=== PATIENT | male | born 1995 | race Caucasian/White ===

== ENCOUNTER 2018-07-06 10:34 | Emergency (ER) | payer BC, SELFPAY ==
[2018-07-06 10:40] VITALS: BP 125/71; PULSE 56; RESP 16; TEMP 37; O2SAT 97
--- NOTE | 2018-07-06 10:56 | ED.GENADUL_ITS ---
Discharge Plan Disposition Patient Disposition: HOME Condition: Stable Discharge Details Chief Complaint: EyeProblem Clinical Impression: Acute allergic conjunctivitis of both eyes Primary Care Provider: Tiki Caballero ED Provider: Melba Lawrence Home Meds and New Rx's Prescriptions: New gentamicin 0.3 % drops 2 drp OP Q4H 5 Days RF: 0 Discharge Instructions Instructions: Conjunctivitis (ED) Additional Instructions: Apply cool compresses to the affected eyes several times daily for 20 minutes at a time. Take [id number] allergy medication such as Zyrtec, Claritin or Jena. Your symptoms can be due to an allergic conjunctivitis but could possibly turn bacterial. Signs of bacterial conjunctivitis include worsening eye irritation, yellow discharge or yellow crusting. If you develop any signs of bacterial conjunctivitis, start the gentamicin ophthalmic solution-2 drops in affected eye 6 times daily for 5 days. Follow-up with your primary care doctor in 1 week for reevaluation. Return to the emergency department with any worsening or new concerning symptoms. Discharge Data Discharge Date/Time-TO BE ENTERED AT DEPARTURE: 07/06/18 11:43 Discharge Physician: Melba Lawrence Medical Decision Making 23-year-old male who presents for left eye irritation, itching and redness for the past week. States symptoms are now starting in the right eye. Also admits to nasal congestion and rhinorrhea. Denies known injury or foreign body sensation. Denies blurry vision. Patient wears contacts. OD 20/50, OS 20/50, OU 20/50. Left eye appears injected, with tearing. No corneal abrasion noted with fluorescein staining. No foreign body noted with slit-lamp exam. Appears likely consistent with allergic conjunctivitis. Discussed with patient that this could be the start of bacterial conjunctivitis. If he develops crusting, discharge, start the ophthalmic drops. Patient instructed to follow- up with primary care doctor in 1 week and return here with any concerns. HPI General Mode of arrival: ambulatory . Date/Time Provider Initiated Documentation: 07/06/18 10:42 . Limitations to Documentation: no limitations . Information obtained by: patient . HPI Narrative: Patient is a 23-year-old male presents with left eye irritation, itching and redness for the past week, worse this morning. States he is also started to feel itching in his right eye. He also does admit to nasal congestion, runny nose. States he changes his contacts daily and took them out this morning. He denies known injury, foreign body sensation. 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 He denies any blurry vision. Past medical history: None Surgical history: Knee surgery Social history: Rare alcohol use, denies tobacco or drugs Medications: None Allergies: None Related Data Home Medications Medication Instructions Recorded Confirmed gentamicin 2 drp OP Q4H 5 Days ml 07/06/18 Previous Rx's Medication Instructions Recorded gentamicin 2 drp OP Q4H 5 Days ml 07/06/18 Allergies Allergy/AdvReac Type Severity Reaction Status Date / Time No Known Allergies Allergy Unverified 05/26/14 08:59 General Stated Complaint: EyeProblem TISHA: 4 Review of Systems Review of Systems All systems reviewed & are unremarkable except as noted in HPI and below PFSH Social History Smoking/Tobacco Use Status: Never Exam Const General: cooperative and healthy appearing Orientation: alert and awake HENMT Head: normal to inspection Ears: hearing grossly normal bilaterally, external ears normal and TM's normal bilaterally General nose exam: external nose normal Face and sinus: normal facial exam Mouth: oral mucosae normal Teeth and gingiva: dentition normal Throat: posterior oropharynx normal Eyes General: appearance normal, both eyes and all related structures Periorbital: periorbital findings normal Eyelids: eyelids normal Conjunctivae: conjunctival abnormality left conjunctival injection diffuse Pupils: PERRL EOM: EOM intact bilaterally Neck Neck: normal visual inspection Resp Effort & Inspection: normal respiratory effort and able to speak in complete sentences Cardio Rate: regular rate Skin General skin exam: no rashes or lesions noted Neuro General: alert and awake Cognition: normal cognition Speech: speech normal Gait: normal gait Motor: muscle tone normal throughout Sensory Exam: no sensory deficits noted Extrem General: normal to inspection and full ROM Psych Appearance: grossly normal Mental Status: mental status grossly normal Speech and Movement: speech and movement normal Affect: normal affect Thought Process: normal Course Vital Signs Temperature 98.6 F 07/06/18 10:40 Pulse 56 L 07/06/18 10:40 Respiratory Rate 16 07/06/18 10:40 Blood Pressure 125/71 07/06/18 10:40 Pulse Oximetry 97 07/06/18 10:40 Temperature 98.6 F 07/06/18 10:40 Temperature Source Temporal Artery Scan 07/06/18 10:40 Pulse 56 L 07/06/18 10:40 Respiratory Rate 16 07/06/18 10:40 Respiratory Effort 07/06/18 10:42 Blood Pressure 125/71 07/06/18 10:40 Blood Pressure Position Sitting 07/06/18 10:40 Pulse Oximetry 97 07/06/18 10:40 Oxygen Delivery Method Room Air 07/06/18 10:40 Oxygen Flow Rate 0 07/06/18 10:40 Pain Level 0 07/06/18 10:40
[2018-07-06] MEDS: Tetracaine 0.5% 4 ML BTL (11:50)
== END 2018-07-06 11:43 | disposition home or self-care (01) ==
PROVIDERS: Emergency Provider Physician Assistant; PCP Pediatrics
DX: H10.13 Acute atopic conjunctivitis, bilateral (principal)
CPT/HCPCS: 99283

== ENCOUNTER 2020-02-02 09:28 | Outpatient (CLI) | payer BC, SELFPAY ==
[2020-02-03 21:03] LABS: COVID-19 RT-PCR UVMMC Result Negative (Negative)
== END 2020-02-02 09:48 ==
PROVIDERS: PCP Pediatrics; Visit Provider Family Medicine
DX: R50.9 Fever, unspecified (principal); J02.9 Acute pharyngitis, unspecified
CPT/HCPCS: U0003

== ENCOUNTER 2021-02-28 11:54 | Emergency (ER) | payer BC, SELFPAY ==
[2021-02-28] VITALS (30 sets, daily range): BP systolic 111–139; BP diastolic 61–95; PULSE 58–83; RESP 10–22; TEMP 36.7–37; O2SAT 97–100
--- NOTE | 2021-02-28 11:45 | RT.EKG_ITS ---
APPROVED REPORT Exam: Resting ECG Reason for Exam: chest pain Patient Location: E HR:65 bpm ECG Measurements Heart Rate 65 AXIS CO 155 P 30 QRSd 102 QRS 31 QT 367 T 13 QTc 383 Conclusion Sinus rhythm...normal P axis, V-rate 60- 99
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
[2021-02-28 12:51] LABS: Abs Immature Grans 0.03 10^3/uL (0.0-0.06); Absolute Basophil Count 0.02 10^3/uL (0.0-0.2); Absolute Eosinophil Count 0.19 10^3/uL (0.0-0.7); Absolute Monocyte Count 0.41 10^3/uL (0.1-0.8); Absolute Neutrophil Count 5.07 10^3/uL (1.2-6.7); Basophils % 0.3; Eosinophils % 2.4; HGB 14.2 g/dL (13.5-17.5); Immature Grans % 0.4; Lymphocytes % 27.8; MCH 27.7 pg (27.0-33.0); MPV 9.6 fL (8.0-11.0); Monocytes % 5.2; Neutrophils % 63.9; Nucleated RBC 0 %; Platelet Count 305 10^3/uL (130-400); RBC 5.12 10^6/uL (4.36-5.78); RDW 12.4 % (11.8-14.1); RDW-SD 37.8 fL; WBC 7.92 10^3/uL (4.4-10.8)
[2021-02-28 13:13] LABS: ALT 48 U/L (16-63); AST 19 U/L (15-37); Albumin 4.2 g/dL (3.4-5.0); Alkaline Phosphatase 95 U/L (46-116); Anion Gap 13.1 mmol/L (3-11); BUN 15 mg/dL (7-18); Bilirubin, Total 0.6 mg/dL (0.2-1.0); CO2 24.9 mmol/L (21.0-32.0); CREATININE 1.2 mg/dL (0.70-1.30); Calcium 9.2 mg/dL (8.5-10.1); Chloride 101 mmol/L (98-107); Glucose 104 mg/dL (74-106); Potassium 3.2 mmol/L (3.5-5.1); Sodium 139 mmol/L (136-145); Total Protein 8.1 g/dL (6.4-8.2)
[2021-02-28 13:14] LABS: Troponin I < 0.05 ng/mL (<0.06)
--- NOTE | 2021-02-28 15:01 | DI.CT_ITS ---
Exam(s) CT CAROTID NECK CTA EXAM: CT CAROTID NECK CTA CLINICAL HISTORY: chest pain, remote right ICA traumatic dissection. TECHNIQUE: Imaging Protocol: Axial CT angiography was performed with multi-slice acquisition and mu lti-planar and/or 3D reconstructions. CONTRAST MATERIAL: Intravenous: Omnipaque 350 Contrast volume:85 mL COMPARISON: No exams were available for comparison FINDINGS: CTA Neck W: Common Carotid: Right: No aneurysm, occlusion or significant stenosis. Left: No aneurysm, occlusion or significant stenosis. External Carotid: Right: No aneurysm, occlusion or significant stenosis. Left: No aneurysm, occlusion or significant stenosis. Internal Carotid: Right: No aneurysm, occlusion or significant stenosis. Left: No aneurysm, occlusion or significant stenosis. Vertebral Artery: Right: No aneurysm, occlusion or significant stenosis. Left: No aneurysm, occlusion or significant stenosis. Lung Apices: Normal. Bones: Normal. There are mucous retention cysts or polyps in the maxillary sinuses bilaterally. Soft Tissues: Normal. Thyroid: Unremarkable. IMPRESSION: 1. Normal CTA examination of the neck. 2. Results of this exam have been verbally communicated with provider. RADIATION DOSE DELIVERED: 388.32mGy.cm Total DLP 388.32mGy.cm Total DLP DATA REPOSITORY: All CT scans at this facility are submitted to the National Radiology Data Registry (NRDR) Dose Index Registry (DIR) with the [employer] (A[employer]). RADIATION OPTIMIZATION: All CT scans at this facility use at least one of these dose optimization te chniques: automated exposure control; mA and/or kV adjustment per patient size (includes targeted exa ms where dose is matched to clinical indication); or iterative reconstruction.
--- NOTE | 2021-02-28 15:19 | DI.CT_ITS ---
Exam(s) CT THORAX ABDOMEN CTA EXAM: CT THORAX ABDOMEN CTA CLINICAL HISTORY: rt chest pain, prior remote sternal fracture. TECHNIQUE: Imaging Protocol: Axial CT angiography was performed with multi-slice acquisition and m ulti-planar and/or 3D reconstructions. CONTRAST MATERIAL: Intravenous: Omnipaque 350 Contrast volume:100 mL Oral: No COMPARISON: CT CT CAROTID NECK CTA from 02/28/2021 FINDINGS: CHEST: Tracheobronchial tree: Patent where visualized. Pulmonary parenchyma: No consolidation or dominant measurable mass. No architectural distortion. Pulmonary Arteries: No evidence of filling defect to suggest pulmonary emboli. Mediastinum and [place]: No dominant adenopathy or fluid collection. There is soft tissue seen in the an terior mediastinum likely reflecting residual thymic tissue. Visualized thyroid: Unremarkable. Pleura: No effusion or pneumothorax. Heart: The heart is not dilated. No coronary artery calcifications are seen. No pericardial effusion. Aorta: Thoracic aorta non-dilated. No evidence of dissection. Soft Tissues: Bilateral gynecomastia. Bones: Old healed sternal fracture. ABDOMEN AND PELVIS: Abdomen: Celiac axis/mesenteric arteries: No evidence of occlusion or significant stenosis. Renal Arteries: No evidence of occlusion or significant stenosis. There is a single renal artery per fusing each kidney. Aorta: No evidence of occlusion or significant stenosis. No aneurysm or dissection. Iliac Arteries: No evidence of occlusion or significant stenosis. ABDOMEN: Liver: Normal density. No measurable mass. Portal, Superior Mesenteric, and Splenic Veins: Unremarkable. Gallbladder and Biliary Tract: No radiodense calculus or dilation. Pancreas: Normal density, no abnormal calcifications or inflammatory process. Spleen: Normal. Adrenals: No masses seen. Kidneys: Normal size, contour and axis. No radiodense stones or obstructive uropathy. There are tiny hypodensities in the kidneys bilaterally. They are too small for further characterization, but likel y reflect small cysts. Bowel: No obstruction or bowel wall thickening. Appendix is unremarkable. Peritoneal Cavity: No ascites, collection or mesenteric inflammatory response. No free air. Lymph Nodes: Within normal limits. Bones: Unremarkable. Soft Tissues: Unremarkable. IMPRESSION: 1. Normal CT Angiogram of the chest, abdomen and pelvis. 2. No acute abnormality. 3. Results of this exam have been verbally communicated with provider. RADIATION DOSE DELIVERED: 851.74mGy.cm Total DLP DATA REPOSITORY: All CT scans at this facility are submitted to the National Radiology Data Registry (NRDR) Dose Index Registry (DIR) with the [employer] (ACR). RADIATION OPTIMIZATION: All CT scans at this facility use at least one of these dose optimization te chniques: automated exposure control; mA and/or kV adjustment per patient size (includes targeted exa ms where dose is matched to clinical indication); or iterative reconstruction.
[2021-02-28] MEDS: Normal Saline - Diluent 50 ML VIAL IV (15:27)
[2021-02-28] MEDS: Omnipaque 350 MG/ML 100 ML BTL IJ (15:27)
[2021-02-28] MEDS: Potassium Chloride 20 MEQ TABCR 40 MEQ PO (15:55)
== END 2021-02-28 16:03 | disposition home or self-care (01) ==
PROVIDERS: Emergency Provider Student in an Organized Health Care Education/Training Program; PCP Physician Assistant
DX: E87.6 Hypokalemia (principal); R07.9 Chest pain, unspecified
CPT/HCPCS: 36415; 70498; 71275; 74175; 80053; 93005; 99285; 84484; 85025; 93010; 99284; J3490

== ENCOUNTER 2022-08-29 19:03 | Outpatient (REF) | payer BC, SELFPAY ==
[2022-08-31 15:17] LABS: Chlamydia Result Negative (Negative); GC Result Negative (Negative)
== END 2022-08-29 19:04 | disposition home or self-care (01) ==
LOC: NCHCN 19:03
PROVIDERS: PCP Physician Assistant; Visit Provider Physician Assistant
DX: Z20.2 Contact with and (suspected) exposure to infections with a predominantly sexual mode of transmission (principal)
CPT/HCPCS: 87491; 87591

== ENCOUNTER 2024-03-05 11:08 | Outpatient (REF) | payer BC, SELFPAY ==
[2024-03-05 15:23] LABS: Calculated LDL 70 mg/dL (<100); Cholesterol 139 mg/dL (<200); HDL Cholesterol 42 mg/dL (40-60); Triglyceride 139 mg/dL (<150)
[2024-03-05 15:27] LABS: Hemoglobin A1C 5.3 % (<5.7)
== END 2024-03-05 11:09 | disposition home or self-care (01) ==
LOC: NCHCN 11:08
PROVIDERS: PCP Physician Assistant; Visit Provider Physician Assistant
DX: Z13.1 Encounter for screening for diabetes mellitus (principal); Z13.220 Encounter for screening for lipoid disorders
CPT/HCPCS: 80061; 83036

== ENCOUNTER → 2024-03-21 14:49 | Outpatient (CLI) | payer BC, SELFPAY ==
--- NOTE | 2024-03-21 15:10 | DI.RAD_ITS ---
Exam(s) XR LUMBAR SPINE COMPLETE EXAM: XR LUMBAR SPINE COMPLETE CLINICAL HISTORY: LOW BACK PAIN M54.50. TECHNIQUE: 2D digital imaging was performed of the lumbar spine. Five images were obtained. AP, la teral, right oblique, left oblique and L5-S1 spot views were obtained. COMPARISON: CT CT THORAX ABDOMEN CTA from 02/28/2021 FINDINGS: BONES: No fracture or destructive lesion. Vertebral bodies are unremarkable. No facet hypertrophy tra ntified. DISKS: Intervertebral disc spaces are maintained. ALIGNMENT: Lumbar spinal alignment is within normal limits. No spondylolysis or spondylolisthesis. SOFT TISSUE: Normal. IMPRESSION: Unremarkable radiographs of the lumbar spine. DATA REPOSITORY: RADIATION DOSE DELIVERED:
== END ==
PROVIDERS: PCP Physician Assistant; Visit Provider Physician Assistant Medical
DX: M54.50 Low back pain, unspecified (principal)
CPT/HCPCS: 72110

== ENCOUNTER 2025-02-07 00:38 | Emergency (ER) | payer BC, SELFPAY ==
[2025-02-07] VITALS (12 sets, daily range): BP systolic 128–137; BP diastolic 63–75; PULSE 68–86; RESP 10–30; TEMP 36.6; O2SAT 94–100
[2025-02-07] MEDS: Loratidine 10 MG TAB PO (01:07)
[2025-02-07] MEDS: predniSONE 20 MG TAB 60 MG PO (01:07)
[2025-02-07] MEDS: Albuterol/Ipratropium 3 ML UPD VIAL UPD (01:07)
--- NOTE | 2025-02-07 01:13 | DI.RAD_ITS ---
Exam(s) XR CHEST 2V PA LATERAL EXAM: XR CHEST 2V PA LATERAL CLINICAL HISTORY: cough, asthma TECHNIQUE: 2D digital imaging was performed of the chest. Two images were obtained. PA and lateral views were obtained. COMPARISON: No exams were available for comparison FINDINGS: MEDIASTINUM: Normal. HEART: Normal. PULMONARY VASCULATURE: Normal. LUNGS: Clear. PLEURAL SPACE: No pleural effusion or pneumothorax. BONE:Within normal limits for the patient's age. OTHER FINDINGS:Normal. IMPRESSION: 1. No acute pulmonary findings. 2. The preliminary [facility] report was reviewed. DATA REPOSITORY: RADIATION DOSE DELIVERED:
--- NOTE | 2025-02-07 01:32 | DI.[facility]_ITS ---
PROCEDURE INFORMATION: Exam: XR Chest Exam date and time: 02/07/2025 1:06 AM Age: 29 years old Clinical indication: Cough, asthma TECHNIQUE: Imaging protocol: Radiologic exam of the chest. Views: 2 views. COMPARISON: CT THORAX ABDOMEN CTA 02/28/2021 3:18 PM FINDINGS: Lungs: Unremarkable. No consolidation. Pleural spaces: Unremarkable. No pleural effusion. No pneumothorax. Heart/Mediastinum: Unremarkable. No cardiomegaly. Bones/joints: Unremarkable. IMPRESSION: No acute findings. Dictated and Authenticated by: Prince Hurtado MD. Orderin Paty Linares MD
--- NOTE | 2025-02-07 01:32 | ED.GENADUL_ITS ---
Discharge Plan Disposition Patient Disposition: Home Condition: Good Discharge Details Clinical Impression: Asthma exacerbation Primary Care Provider: Mendel Elizondo ED Provider: Vijay Newman Home Meds and New Rx's Prescriptions: New prednisone 50 mg tablet 50 mg PO DAILY Qty: 5 0RF No Action acetaminophen [Tylenol] 325 mg capsule 325 mg PO ONCE PRN Discharge Instructions Instructions: Asthma in adults Additional Instructions: At this time you have evidence of asthma as the cause of your symptoms. Thankfully there is no evidence of pneumonia or other abnormality on your x-ray. Please take your inhaler, 2 puffs every 6-8 hours for the next week or so until your symptoms resolve. Please take the steroid as directed. It would be my recommendation that you cut down on all types of smoking as this can aggravate your lungs and asthma. If you notice any worsening of your symptoms, or any new symptoms such as vomiting, diarrhea, fever, chills, shortness of breath, chest pain, numbness, weakness, or fainting , please return immediately to the emergency department for reevaluation. Please follow up with your primary care provider as soon as possible for reassessment and reevaluation. As always, it was a pleasure participating in your medical care today. Referrals: Mendel Elizondo [Primary Care Provider] - [facility] General Date/Time Provider Initiated Documentation: 02/07/25 00:39 . [facility] Narrative: This is a 29-year-old male with very distant past medical history of having an inhaler as a young child, who currently smokes marijuana but denies any tobacco or vaping use, presents today for 2 to 3 days of mild shortness of breath, mild cough with runny nose and congestion. He denies hemoptysis. No significant productivity with this cough. He denies fever or chills. No other sick contacts at home. He feels short of breath in general, worse when he coughs. He denies any trauma. No recent long trips surgeries or procedures. No other complaints at this time. Related Data Home Medications ?Medication ?Instructions ?Recorded ?Confirmed acetaminophen 325 mg capsule 325 mg PO ONCE PRN 08/30/22 02/07/25 (Tylenol) prednisone 50 mg tablet 50 mg PO DAILY #5 tabs 02/07/25 Previous Rx's ?Medication ?Instructions ?Recorded prednisone 50 mg tablet 50 mg PO DAILY #5 tabs 02/07/25 Allergies Allergy/AdvReac Type Severity Reaction Status Date / Time No Known Allergies Allergy Unverified 02/07/25 00:52 General Stated Complaint: RespSymp TISHA: 3 Exam Narrative Exam Narrative: 1.Const: Well-nourished, Well-developed, appearing stated age 2.Eyes: PERRL, no conjunctival injection, and symmetrical lids. 3.ENT: Atraumatic external nose and ears. Moist MM. Neck: Symmetric, trachea midline, No thyromegaly. 4.CVS: +S1/S2, Peripheral pulses 2+ and equal in all extremities. Brisk capillary refill in all extremities. 5.RESP: Diffuse wheezes throughout, no labored respiratory effort. No rhonchi or rales. 6.GI: Soft, Nontender/Nondistended, No hepatosplenomegaly. No guarding or rebound. 7.MSK: Normocephalic/Atraumatic, Extremities w/o deformity or ttp No cyanosis or clubbing, Normal movement of all extremities 8.Skin: Warm, Dry. No rashes or lesions. 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 Sensation grossly intact, no focal neurol ogic deficits. 10.Psych: (AAO) x3. Appropriate mood and affect Course Vital Signs Vital signs: Vital Signs Temperature 36.6 C 02/07/25 00:47 Pulse 84 02/07/25 00:47 Respiratory Rate 20 02/07/25 00:47 Blood Pressure 137/74 02/07/25 00:47 Pulse Oximetry 96 02/07/25 00:47 Temperature 36.6 C 02/07/25 00:51 Temperature Source Tympanic 02/07/25 00:51 Pulse 84 02/07/25 00:51 Respiratory Rate 20 02/07/25 00:51 Blood Pressure 137/74 02/07/25 00:51 Blood Pressure Position Sitting 02/07/25 00:51 Pulse Oximetry 96 02/07/25 00:51 Oxygen Delivery Method Room Air 02/07/25 00:51 Oxygen Flow Rate 0 02/07/25 00:51 Procedure Smoking Cessation Time Spent Discussing Smoking Cessation with Patient: 10:00 Patient Acknowledges Need for Cessation: Yes Medical Decision Making This is a 29-year-old male with very distant past medical history of having an inhaler as a young child, who currently smokes marijuana but denies any tobacco or vaping use, presents today for 2 to 3 days of mild shortness of breath, mild cough with runny nose and congestion. He denies hemoptysis. No significant productivity with this cough. He denies fever or chills. No other sick contacts at home. He feels short of breath in general, worse when he coughs. He denies any trauma. No recent long trips surgeries or procedures. No other complaints at this time. Exam demonstrates a well-appearing male, oxygen saturation at 96%. Mild diffuse wheezes throughout. No rhonchi or rales. Concern for reactive airway disease/asthma. Chest x-ray was ordered and shows no evidence of pneumonia. Still pending COVID flu and RSV testing. Symptoms appear consistent with asthma exacerbation. We will give DuoNeb breathing treatment, prednisone, and loratadine for the runny nose. Will monitor closely and reassess. 1:45 AM On reassessment patient feels much better after breathing treatment. Lung sounds notably improved. Oxygenation remained stable. Chest x-ray negative for any evidence of pneumonia or pneumothorax. COVID flu and RSV test negative. Symptoms appear consistent with asthma exacerbation. Will recommend decreasing smoking of marijuana. Will give albuterol inhaler for home use. Will give 5 days of steroids. Discussed red flags for which to return. I have extensively reviewed the treatment plan and discharge instructions with the patient. I have addressed all patient concerns at this time. The patient was made aware of what symptoms to monitor for that would warrant a return to the emergency department. Discussed the plan with the patient, they demonstrate verbal understanding and agreement with our assessment and plan at this time. The documentation in this chart was dictated using [employer] dictation software. Please excuse any dictation errors. FINDINGS: Lungs: Unremarkable. No consolidation. Pleural spaces: Unremarkable. No pleural effusion. No pneumothorax. Heart/Mediastinum: Unremarkable. No cardiomegaly. Bones/joints: Unremarkable. IMPRESSION: No acute findings. Thank you for allowing us to participate in the care of your patient. 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
[2025-02-07 01:47] LABS: COVID-19 PCR Negative (Negative); Influenza A PCR Negative (Negative); Influenza B PCR Negative (Negative); RSV PCR Negative (Negative)
[2025-02-07 01:51] LABS: Source Nasopharynx
[2025-02-07] MEDS: Albuterol HFA 8 GM 60 PUFF INH IH (02:00)
== END 2025-02-07 02:01 | disposition home or self-care (01) ==
PROVIDERS: Emergency Provider Student in an Organized Health Care Education/Training Program; PCP Physician Assistant
DX: J45.901 Unspecified asthma with (acute) exacerbation (principal)
CPT/HCPCS: 87637; 94640; 99284; 71046; J7512; J7620